=== PATIENT | female | born 1965 | race Asian ===

== ENCOUNTER 2018-07-22 08:26 | Day surgery (SDC) | payer OTHER ==
[2018-07-22] MEDS ORDERED: MIDAZOLAM 1 MG/ML 2 ML INJ (10:05)
[2018-07-22] MEDS ORDERED: FENTAnyl 50 MCG/ML VIAL (10:06)
== END 2018-07-22 10:59 | disposition home or self-care (01) ==
LOC: GIL 08:26
DX: Z12.11 Encounter for screening for malignant neoplasm of colon (principal); D12.6 Benign neoplasm of colon, unspecified; K64.8 Other hemorrhoids; K64.4 Residual hemorrhoidal skin tags; E03.9 Hypothyroidism, unspecified
CPT/HCPCS: 45380; 82962; 84703; 88305